=== PATIENT | male | born 1945 | race Caucasian/White ===

== ENCOUNTER 2022-05-08 01:51 | Emergency (ER) | payer MEDICARE, MEDICAID ==
[2022-05-08] MEDS ORDERED: Sodium Chloride 0.9% 10 ML Syringe FLUSH PRN (02:00)
[2022-05-08] MEDS ORDERED: 50% Dextrose in Water 50 ML Syringe IVPUSH ONE (02:56)
== END 2022-05-08 08:13 | disposition home or self-care (01) ==
LOC: FB.ED 01:51
DX: E16.2 Hypoglycemia, unspecified (principal)
CPT/HCPCS: 82947; 96374; 99285-25; J3490

== ENCOUNTER 2023-08-20 06:55 | Day surgery (SDC) | payer MEDICARE, MEDICAID ==
[~2023-08-20 06:55] MED LIST: Lactated Ringers 1,000 ML IV SCH; Sodium Chloride 0.9% 10 ML Syringe FLUSH PRN
[2023-08-20] MEDS ORDERED: fentaNYL 100 MCG/2 ML SDV IV ONE (06:56)
[2023-08-20] MEDS ORDERED: Midazolam 1 MG/ML 2 ML SDV IV ONE (06:56)
[2023-08-20] MEDS ORDERED: acetaZOLAMIDE 500 MG Cap.ER PO ONE (09:00)
== END 2023-08-20 09:50 | disposition home or self-care (01) ==
LOC: FB.SDS 06:55
PROVIDERS: ATTEND Ophthalmology
DX: E11.36 Type 2 diabetes mellitus with diabetic cataract (principal); H21.81 Floppy iris syndrome; I10 Essential (primary) hypertension; E11.51 Type 2 diabetes mellitus with diabetic peripheral angiopathy without gangrene; E11.59 Type 2 diabetes mellitus with other circulatory complications; F41.1 Generalized anxiety disorder; E11.69 Type 2 diabetes mellitus with other specified complication; F32.5 Major depressive disorder, single episode, in full remission; Z79.899 Other long term (current) drug therapy
CPT/HCPCS: A9270-GY; J2250; J3010; J7120; V2632

== ENCOUNTER 2023-09-24 08:01 | Day surgery (SDC) | payer MEDICARE, MEDICAID ==
[~2023-09-24 08:01] MED LIST changes: -Lactated Ringers 1,000 ML IV SCH
[2023-09-24] MEDS ORDERED: Midazolam 1 MG/ML 2 ML SDV IV ONE (08:02)
[2023-09-24] MEDS ORDERED: fentaNYL 100 MCG/2 ML SDV IV ONE (08:02)
[2023-09-24] MEDS ORDERED: Propofol 200 MG/20 ML SDV IV ONE (08:02)
[2023-09-24] MEDS: Lactated Ringers 1,000 ML IV SCH (08:47)
[2023-09-24] MEDS: acetaZOLAMIDE 500 MG Cap.ER PO ONE (10:32)
== END 2023-09-24 10:45 | disposition other institution (70) ==
LOC: FB.SDS 08:01
PROVIDERS: ATTEND Ophthalmology
DX: H25.813 Combined forms of age-related cataract, bilateral (principal); H04.123 Dry eye syndrome of bilateral lacrimal glands; H35.3132 Nonexudative age-related macular degeneration, bilateral, intermediate dry stage; E11.65 Type 2 diabetes mellitus with hyperglycemia; Z79.899 Other long term (current) drug therapy; Z79.4 Long term (current) use of insulin; Z79.84 Long term (current) use of oral hypoglycemic drugs
CPT/HCPCS: 82947; A9270-GY; J2250; J2704; J3010; J7120; V2632

== ENCOUNTER 2025-03-06 01:59 | Emergency (ER) | payer MEDICAID, MEDICARE ==
[2025-03-06] MEDS: 50% Dextrose in Water 50 ML Syringe IVPUSH ONE (02:26)
== END 2025-03-06 03:15 ==
LOC: FB.ED 01:59
DX: E11.649 Type 2 diabetes mellitus with hypoglycemia without coma (principal); I10 Essential (primary) hypertension; Z79.82 Long term (current) use of aspirin; Z79.4 Long term (current) use of insulin
CPT/HCPCS: 82947; 99284; 99285